=== PATIENT | female | born 1985 | race Caucasian/White ===

== ENCOUNTER 2016-10-20 19:46 | Emergency (ER) | payer OTHER, BC ==
--- NOTE | ~2016-10-20 | CR94 ---
[facility]. [facility] A Service of [facility] RADIOLOGY TEXT RESULTS PATIENT: RICKI SPRINGER LOCATION: SED : 81 UNIT #: [id number] AGE: [address]: Nando Davidson SEX: F ORDER DR: [id number] [address] [address] [id number] MR#: [id number] Acc #: [id number] NAME: RICKI SPRINGER. : 1985 SEX: F STUDY DATE/TIME: 10/20/2016 20:07 UNIT: SED ROOM: STUDY DESCRIPTION: CR Elbow Min 3 Views Rt Attending Physician: Nando Davidson P.A.-C. Ordering Physician: Nando Davidson P.A.-C. Primary Care Physician: Primary Care Physician No MEDICAL IMAGING REPORT This report is preliminary unless electronic signature is present. EXAM Right elbow series dated 10/20/2016. COMPARISON None. HISTORY Right elbow pain tonight post fall. FINDINGS Three views of the right elbow were obtained. There is moderate joint effusion seen. It is highly suspicious for a fracture, but well-defined fracture is difficult to visualize. There is probably a nondisplaced fracture involving the radial head. Visualized supracondylar portion of the humerus and the ulna appear to be relatively intact. IMPRESSION 1. Moderate joint effusion. 2. There is an occult fracture, which is difficult to visualize. I have a mild suspicion it is probably in the radial head; however, it is not clearly identified and it could be from any of the bones at the elbow joint. Dictated by... Latisha Rivera M.D. THIS IS AN ELECTRONICALLY VERIFIED REPORT Latisha Rivera M.D. at 10/21/2016 2:25 PM CPR/psc [facility] A Service of [facility] RADIOLOGY TEXT RESULTS PATIENT: RICKI SPRINGER LOCATION: SED : 81 UNIT #: [id number] AGE: [address]: Nando Davidson SEX: F ORDER DR: TD: 10/20/2016 22:39 JOB #: [id number] MEDICAL IMAGING REPORT Page 1 of 1
== END 2016-10-20 21:06 | disposition home or self-care (01) ==
LOC: SED 19:46
DX: S52.124A Nondisplaced fracture of head of right radius, initial encounter for closed fracture (principal); W19.XXXA Unspecified fall, initial encounter; Y92.009 Unspecified place in unspecified non-institutional (private) residence as the place of occurrence of the external cause
CPT/HCPCS: 29105; 73080; 99283